=== PATIENT | male | born 1950 | race Caucasian/White ===

== ENCOUNTER → 2020-09-01 | Outpatient (REF) | payer MEDICARE | LOC: M LAB REF 16:34 | PROVIDERS: ATTEND Physician Assistant Medical | DX: R68.82 Decreased libido (principal) ==

== ENCOUNTER → 2020-09-09 | Outpatient (CLI) | payer MEDICARE ==
--- NOTE | 2020-09-09 11:09 | REP ---
INDICATION: PAIN RT INGUINAL AREA. COMPARISON: None. TECHNIQUE: Bilateral inguinal canal sonography without and with Valsalva. FINDINGS: Inguinal canal size at rest on the right is 10 mm and on the left 10 mm. With Valsalva the right canal the diameter increases 17 mm and the left 14 mm. On the left with Valsalva there is protrusion of abdominal fat, less so on the right. IMPRESSION: Findings consistent with subtle bilateral inguinal hernias, left a little more prominent than right trans [place] abdominal fat. No bowel involvement. No fluid collection. Correlation with physical exam findings recommended. <Electronically signed by Sonu Goff > 09/09/20 [id number]
== END ==
LOC: M RAD 09:45
PROVIDERS: ATTEND Physician Assistant Medical
DX: R10.32 Left lower quadrant pain (principal)